=== PATIENT | female | born 1970 | race Caucasian/White ===

== ENCOUNTER 2019-02-02 11:26 | Emergency (ER) | payer BC ==
[~2019-02-02] VITALS: Ht 157.5 cm; Wt 103.0 kg
[~2019-02-02 11:26] MED LIST: CARB15DR91 EACH EAR
[2019-02-02 12:02] LABS: BASOPHILS # (AUTO) 0.1 X10'3 (0-0.2); BASOPHILS % (AUTO) 0.7 % (0-1); EOSINOPHILS % (AUTO) 0.7 % (0-6); HEMATOCRIT 46.1 % (35.0-45.0); HEMOGLOBIN 15.7 g/dl (12.0-16.0); LYMPHOCYTES # (AUTO) 1.6 X10'3 (1.1-4.8); LYMPHOCYTES % (AUTO) 23.4 % (21-51); MEAN CORPUSCULAR HEMOGLOBIN 29.1 PG (27.0-31.0); MEAN CORPUSCULAR VOLUME 85.4 FL (78-98); MEAN PLATELET VOLUME 8.9 FL (7.4-10.4); MONOCYTES # (AUTO) 0.7 X10'3 (0-0.9); MONOCYTES % (AUTO) 10.6 % (2-12); NEUTROPHILS # (AUTO) 4.5 X10'3 (1.8-7.7); NEUTROPHILS % (AUTO) 64.6 % (42-75); PLATELET COUNT 362 X10'3 (140-440); RED BLOOD COUNT 5.39 X10'6 (4.20-5.60); RED CELL DISTRIBUTION WIDTH 13.9 % (11.5-14.5)
[2019-02-02 12:19] LABS: ALANINE AMINOTRANSFERASE 53 U/L (12-78); ALBUMIN 3.7 G/DL (3.4-5.0); ALBUMIN/GLOBULIN RATIO 0.8 (1.1-1.5); ALKALINE PHOSPHATASE 117 IU/L (46-116); ANION GAP 18 (8-16); ASPARTATE AMINO TRANSFERASE 35 U/L (10-37); BILIRUBIN,TOTAL 0.9 MG/DL (0.1-1.0); BLOOD UREA NITROGEN 17 MG/DL (7-18); BUN/CREATININE RATIO 20.7 (6.6-38.0); CALCIUM 10.2 MG/DL (8.5-10.1); CHLORIDE 103 MMOL/L (99-107); CREATININE 0.82 MG/DL (0.40-0.90); GLUCOSE 90 MG/DL (70-104); LIPASE 538 U/L (73-393); SODIUM 142 MMOL/L (135-145); TOTAL CARBON DIOXIDE 20.9 MMOL/L (24-32); TOTAL PROTEIN 8.4 G/DL (6.4-8.2); eGFR 74 ML/MIN
[2019-02-02 13:07] LABS: PARTIAL THROMBOPLASTIN TIME 64 SECONDS (22-32)
[2019-02-02] MEDS ORDERED: normal saline 1000ml 1,000 ML IV ONE ×2 (13:45→13:50)
[2019-02-02] MEDS ORDERED: proCHLORperazine 10 MG/2 ml inj IV ONE (13:45)
[2019-02-02] MEDS ORDERED: potassium 10mEq/100ml NS w/LIDOcaine (10mg/bag) IV SCH (13:45)
[2019-02-02] MEDS ORDERED: magnesium 2GM in 50ml NS 50 ML IV ONE (13:45)
[2019-02-02] MEDS ORDERED: potassium Cl 10 mEq/100mL bag IV SCH (13:47)
[2019-02-02 14:13] LABS: TROPONIN I < 0.04 NG/ML (0.0-0.05)
[2019-02-02] MEDS ORDERED: iohexol 300mg/ml 100ml inj. ONE (14:40)
[2019-02-02] MEDS: diatr meglu/diatrizoate 30ml oral sol.-(3 dose) bottle PO SCH ×2 (14:42→15:34)
[2019-02-02 15:52] LABS: URINE HCG NEGATIVE (NEG)
[2019-02-02 16:05] LABS: CLARITY,URINE CLOUDY (Clear); COLOR,URINE YELLOW (Yellow); GLUCOSE, URINE NEGATIVE (Neg); KETONES,URINE >=80 mg/dl (Neg); LEUKOCYTE ESTERASE ,URINE TRACE (Neg); NITRITES, URINE NEGATIVE (Neg); OCCULT BLOOD,URINE MODERATE (Neg); PROTEIN,URINE 30 mg/dl (Neg)
[2019-02-02] MEDS ORDERED: POTA20TA19 PO (16:08)
[2019-02-02] MEDS ORDERED: PROM25SU46 RC (16:08)
[2019-02-02] MEDS ORDERED: ONDA8TAB6 PO (16:08)
[2019-02-02 16:15] LABS: SQUAMOUS EPITHELIAL CELL,UR MANY /LPF (FEW); UA COLLECTION TYPE VOIDED
[2019-02-02 16:16] LABS: BACTERIA,URINE 2+ /HPF (Neg); MUCUS STRANDS MANY /LPF (Neg); RBC,URINE 0-2 /HPF (0-2)
[2019-02-02 17:38] VITALS: BP 130/77
== END 2019-02-02 17:40 | disposition home or self-care (01) ==
LOC: ER 11:26
DX: A08.4 Viral intestinal infection, unspecified (principal); E87.6 Hypokalemia; R79.1 Abnormal coagulation profile; Z79.899 Other long term (current) drug therapy
CPT/HCPCS: 36415; 74177; 80053; 81001; 81025; 83690; 84484; 85025; 85610; 85730; 96365; 96366; 96368; 96375; 99284; J0780; J3475; J3480; J7030; Q9963; Q9967

== ENCOUNTER 2020-05-25 15:56 | Emergency (ER) | payer BC ==
[~2020-05-25] VITALS: Ht 157.5 cm; Wt 93.2 kg
[~2020-05-25 15:56] MED LIST changes: +ONDA8TAB6 PO; +PROM25SU9 RC
[2020-05-25 16:44] VITALS: BP 154/82
== END 2020-05-25 20:30 | disposition left against medical advice (07) ==
LOC: ER 15:56
DX: M79.602 Pain in left arm (principal); Z53.21 Procedure and treatment not carried out due to patient leaving prior to being seen by health care provider

== ENCOUNTER 2020-08-02 01:53 | Emergency (ER) | payer BC, MEDICAID ==
[~2020-08-02] VITALS: Ht 157.5 cm; Wt 94.1 kg
[2020-08-02] MEDS ORDERED: AMOX-117 PO (02:14)
[2020-08-02] MEDS ORDERED: ketorolac trometh inj. 60 MG/2 ML VIAL IM ONE (02:15)
[2020-08-02] MEDS ORDERED: ondansetron 4mg rapidly disintigrating tab PO ONE (02:15)
[2020-08-02] MEDS ORDERED: amox tr/potassium clavulanate 875/125mg TAB PO ONE (02:15)
[2020-08-02 02:36] VITALS: BP 165/101
[2020-08-02] MEDS ORDERED: LIDO20SO16 PO (14:11)
== END 2020-08-02 02:39 | disposition home or self-care (01) ==
LOC: ER 01:53
DX: K08.89 Other specified disorders of teeth and supporting structures (principal); R22.0 Localized swelling, mass and lump, head; Z86.718 Personal history of other venous thrombosis and embolism; Z79.899 Other long term (current) drug therapy
CPT/HCPCS: 96372; 99283; J1885

== ENCOUNTER 2020-08-02 13:26 | Emergency (ER) | payer BC, MEDICAID ==
[~2020-08-02] VITALS: Ht 157.5 cm; Wt 94.5 kg
[~2020-08-02 13:26] MED LIST changes: +AMOX-117 PO
[2020-08-02] MEDS ORDERED: LIDO20SO16 PO (14:11)
[2020-08-02] MEDS ORDERED: ketorolac tromethamine 15mg/ml inj. IM ONE (14:15)
[2020-08-02 14:27] VITALS: BP 170/80
== END 2020-08-02 14:28 | disposition home or self-care (01) ==
LOC: ER 13:26
DX: K08.89 Other specified disorders of teeth and supporting structures (principal); Z86.718 Personal history of other venous thrombosis and embolism; Z79.899 Other long term (current) drug therapy
CPT/HCPCS: 96372; 99283; J1885

== ENCOUNTER 2022-12-07 10:05 | Inpatient (IN) | payer BC, MEDICAID ==
[~2022-12-07] VITALS: Ht 157.5 cm; Wt 97.4 kg
[~2022-12-07 10:05] MED LIST changes: -AMOX-117 PO; +LIDO20SO16 PO
[2022-12-07 11:07] LABS: URINE HCG NEGATIVE (NEG)
[2022-12-07 11:22] LABS: BASOPHILS # (AUTO) 0.1 X10'3 (0-0.2); EOSINOPHILS # (AUTO) 0.1 X10'3 (0-0.9); EOSINOPHILS % (AUTO) 1.4 % (0-6); HEMATOCRIT 45.4 % (35.0-45.0); HEMOGLOBIN 15.2 g/dl (12.0-16.0); LYMPHOCYTES % (AUTO) 30.5 % (21-51); MEAN CORPUSCULAR HEMOGLOBIN 30.8 PG (27.0-31.0); MEAN CORPUSCULAR HGB CONC 33.3 g/dL (33.0-36.5); MEAN CORPUSCULAR VOLUME 92.2 FL (78-98); MEAN PLATELET VOLUME 7.6 FL (7.4-10.4); MONOCYTES # (AUTO) 0.5 X10'3 (0-0.9); MONOCYTES % (AUTO) 8.3 % (2-12); NEUTROPHILS # (AUTO) 3.8 X10'3 (1.8-7.7); NEUTROPHILS % (AUTO) 58.8 % (42-75); PLATELET COUNT 358 X10'3 (140-440); RED BLOOD COUNT 4.93 X10'6 (4.20-5.60); RED CELL DISTRIBUTION WIDTH 13.9 % (11.5-14.5); WHITE BLOOD COUNT 6.5 X10'3 (4.5-11.0)
[2022-12-07 11:27] LABS: URINE AMPHETAMINE SCREEN NEGATIVE (Neg); URINE BARBITUATE SCREEN NEGATIVE (Neg); URINE BENZODIAZEPINES SCREEN NEGATIVE (Neg); URINE CANNABINOID SCREEN NEGATIVE (Neg); URINE COCAINE SCREEN NEGATIVE (Neg); URINE METHADONE SCREEN NEGATIVE (Neg); URINE OPIATE SCREEN NEGATIVE (Neg); URINE PHENCYCLIDINE SCREEN NEGATIVE (Neg)
[2022-12-07 11:36] LABS: ALANINE AMINOTRANSFERASE 21 U/L (12-78); ALBUMIN 3.9 G/DL (3.4-5.0); ALBUMIN/GLOBULIN RATIO 0.9 (1.1-1.5); ALKALINE PHOSPHATASE 98 IU/L (46-116); ANION GAP 12 (8-16); ASPARTATE AMINO TRANSFERASE 27 U/L (10-37); BILIRUBIN,TOTAL 0.8 MG/DL (0.1-1.0); BLOOD UREA NITROGEN 12 MG/DL (7-18); BUN/CREATININE RATIO 16.7 (10.0-20.0); CHLORIDE 104 MMOL/L (99-107); CREATININE 0.72 MG/DL (0.40-0.90); GLUCOSE 99 MG/DL (70-104); POTASSIUM 3.5 MMOL/L (3.5-5.1); SODIUM 140 MMOL/L (135-145); TOTAL CARBON DIOXIDE 24.2 MMOL/L (24-32); TOTAL PROTEIN 8.1 G/DL (6.4-8.2); eGFR 85 ML/MIN
[2022-12-07 11:45] LABS: CALCIUM 9.8 MG/DL (8.5-10.1)
--- NOTE | 2022-12-07 11:49 | NUR ---
MENTAL HEALTH PACKET FAXED
[2022-12-07 11:56] LABS: ETHANOL < 0.010 GM/DL (0.0-0.010)
[2022-12-07] MEDS ORDERED: WARF1TAB83 PO (13:25)
--- NOTE | 2022-12-07 13:30 | NUR ---
Patient ambulatory, steady gait. No distress observed. Continue to monitor.
--- NOTE | 2022-12-07 15:20 | NUR ---
[facility], Nick is placing patient on a 5150. Patient is calm and states she is still feeling suicidal. Patient has a lot of stressors in her life. Continue to monitor.
[2022-12-07] MEDS ORDERED: WARF6TAB49 PO (15:43)
--- NOTE | 2022-12-07 17:18 | NUR ---
Patient reclining in bed and appears asleep. No distress observed. Continue to monitor.
--- NOTE | 2022-12-07 19:24 | NUR ---
Patient is pleasant and cooperative with care. When asked about sucidal thought she stated, "not so much today." Patient reported she struggles with depression and the previous medication worsened her thoughts. Patient is homeless but reports having a "safe place to sleep at night." Patient's hard of hearing; communicates well with lip reading and hearing aids. Patient's hearing aid marine firefighter was left in car and her keys are with security. Patient plans to have a friend visit to get her marine firefighter from the car.
--- NOTE | 2022-12-07 20:53 | NUR ---
Patient appears to be sleeping without apparent difficulties; self repositioning.
[2022-12-07] MEDS: warfarin 3mg tablet PO SCH (21:30)
--- NOTE | 2022-12-07 23:00 | NUR ---
Patient sleeping; no apparent distress and self repositioning.
--- NOTE | 2022-12-08 02:50 | NUR ---
Patient sleeping; no apparent distress and self repositioning.
--- NOTE | 2022-12-08 05:00 | NUR ---
Patient laying in bed quietly; PRN Tylenol provided for TIMMONS.
[2022-12-08] MEDS ORDERED: acetaminophen 325mg tablet PO ONE (05:05)
--- NOTE | 2022-12-08 06:44 | NUR ---
Patient appears to be sleeping. No distress observed. Continue to monitor.
--- NOTE | 2022-12-08 09:54 | NUR ---
With server security administrator and both patient and RN permission, security and I went to the Pt vehicle to retireve her hearing aid commercial floor covering installer and cell phone commercial floor covering installer. Pt vehicle was relocked following the retrieval of the chargers. Pt was informed and shown the retrieved chargers and assured that the vehicle was secured. Chargers placed with Pt belongings.
[2022-12-08] MEDS ORDERED: acetaminophen 325mg tablet PO PRN ×2 (10:25)
[2022-12-08] MEDS ORDERED: loperamide 2mg capsule PO PRN (10:25)
[2022-12-08] MEDS ORDERED: mag hydrox/Alum hydrox/simeth 30ml oral suspension PO PRN (10:25)
[2022-12-08] MEDS ORDERED: magnesium hydroxide 30ml (MOM) UD suspension PO PRN (10:25)
[2022-12-08 10:37] VITALS: BP 159/85; PULSE 69; RESP 16; TEMP 98.9; O2SAT 98
--- NOTE | 2022-12-08 10:58 | NUR ---
Admit note: [facility]150 for DTS from our ER at 1015. Pt states that she has been "Fighting and fighting" and she keeps "Losing and losing" and that she is "Tired". She has a plan involving overdosing on RX painkillers and cutting her wrists. Unable to develop a viable safety plan. Pt has history of HTN, gastric sleeve, depression, DVT.
[2022-12-08 11:34] VITALS: RESP 16; O2SAT 98
[2022-12-08] MEDS: hydrOXYzine 25 MG tablet PO PRN (14:15)
[2022-12-08] MEDS ORDERED: mirtazapine 15mg tablet PO PRN (17:30)
[2022-12-08 19:00] VITALS: BP 150/72; PULSE 72; RESP 18; TEMP 98.1; O2SAT 100
[2022-12-08] MEDS: warfarin 3mg tablet PO SCH (20:59)
--- NOTE | 2022-12-09 01:30 | NUR ---
Nursing progress note: Problem: Pt admitted to [facility] today on 5150 for DTS from our ER at 1015. Pt states that she has been "Fighting and fighting" and she keeps "Losing and losing" and that she is "Tired". She has a plan involving overdosing on RX painkillers and cutting her wrists. Unable to develop a viable safety plan. Pt has history of HTN, gastric sleeve, depression, DVT. Interventions: Provided 1:1 assessment, therapeutic conversation, active listening, medication administration/education/monitoring and Q15 min safety checks. Response: Patient is pleasant and cooperative with care; compliant with medication. She denied SI, HI, A/VH; no apparent delusions expressed. Patient reported feeling "more hopeful." She remained in her bed this shift; observed sleeping and does not appear to be having difficulty. Plan: Patient requires interruption of current crisis in a safe and therapeutic environment.
--- NOTE | 2022-12-09 02:24 | NUR ---
DRAFTER CIVIL ENGINEERING documentation: I have reviewed all interventions, assessments performed and documented by Faina WRIGHT.
[2022-12-09 07:00] VITALS: RESP 16; O2SAT 98
[2022-12-09 08:00] VITALS: BP 151/76; PULSE 64; RESP 16; TEMP 98.4; O2SAT 98
[2022-12-09] MEDS: ESCITALOPRAM OXALATE 5 MG TABLET PO SCH (08:46)
[2022-12-09 09:19] LABS: CHOL/HDL RATIO 3.8 (0.00-4.99); CHOLESTEROL 261 MG/DL (0-200); HDL CHOLESTEROL 69 MG/DL (35-60); LDL CHOLESTEROL 162 MG/DL (50-100); TRIGLYCERIDES 57 MG/DL (20-135)
[2022-12-09 09:21] LABS: HEMOGLOBIN A1C 5.3 % (4.5-6.2)
--- NOTE | 2022-12-09 17:13 | NUR ---
Nursing progress note: Michelle Problem: Pt admitted to [facility] today on 5150 for DTS from our ER at 1015. Pt states that she has been "Fighting and fighting" and she keeps "Losing and losing" and that she is "Tired". She has a plan involving overdosing on RX painkillers and cutting her wrists. Unable to develop a viable safety plan. Pt has history of HTN, gastric sleeve, depression, DVT. Interventions: Established rapport, provided 1:1 assessment, therapeutic conversation, active listening, positive reinforcement, medication administration/education/monitoring, and Q15 min safety checks. Response: Patient received sleeping in her room at change of shift with no s/s of distress. Pt awoke and was receptive to scheduled medication and 1:1 assessment. She joined with peers for breakfast in the group room. Pt is noted to be pleasant, calm, and cooperative with care. She endorsed to this designer writer that she is feeling great and much better after sleeping last night. Pt endorsed that the medication she received yesterday for her anxiety helped a lot also. Pt reported that she hasnt been sleeping well for years. Has no feelings of depression or anxiety. Denies SI/HI, AH and VH. Pt reporting that she would like to go home now. Informed that she will need to speak with the psychiatrist. She is noted isolating to her room the majority of the shift. Pt observed napping most of the day. She joined for all meal and snack times in the group room. Plan: Patient requires interruption of current crisis in a safe and therapeutic environment.
[2022-12-09 19:00] VITALS: RESP 16; O2SAT 98
[2022-12-09 20:00] VITALS: BP 111/81; PULSE 87; RESP 16; TEMP 97.2; O2SAT 98
[2022-12-09] MEDS: hydrOXYzine 25 MG tablet PO PRN (20:42)
--- NOTE | 2022-12-10 04:49 | NUR ---
Nursing progress note: Michelle Problem: Pt admitted to [facility] today on 5150 for DTS from our ER at 1015. Pt states that she has been "Fighting and fighting" and she keeps "Losing and losing" and that she is "Tired". She has a plan involving overdosing on RX painkillers and cutting her wrists. Unable to develop a viable safety plan. Pt has history of HTN, gastric sleeve, depression, DVT. Interventions: Established rapport, provided 1:1 assessment, therapeutic conversation, active listening, positive reinforcement, medication administration/education/monitoring, and Q15 min safety checks. Response: Patient was found in her assigned bed. Pt is calm and pleasant during 1:1 at bedside. Pt denies SI/HI/AVH, depression has decreased, 2/10 and anxiety much improved. I slept great last night. Pt is surprised about how quickly she is feeling since admission. Pt is compliant with HS medication. Atarax 50mg given as PRN. Pt is withdrawn to her room but is social with her roommate. Pt contracts for safety. Monitor for safety through the night. Plan: Patient requires interruption of current crisis in a safe and therapeutic environment.
[2022-12-10 07:05] VITALS: BP 144/77; PULSE 65; RESP 16; TEMP 98.2; O2SAT 99
[2022-12-10] MEDS ORDERED: atorvastatin 20mg tablet PO SCH (08:00)
[2022-12-10] MEDS: ESCITALOPRAM OXALATE 5 MG TABLET PO SCH (08:32)
--- NOTE | 2022-12-10 10:12 | NUR ---
DISCHARGE PLAN Pt. plans to stay with her friend Whitley for awhile to get back on her feet. This Bolt Cutter spoke to Whitley who confirmed that she can in fact stay with her. Pt. has her therapist appointment today that she would like to go to. The plan is for her to discharge today. Made her a follow up appt. with her PCP at [facility]. Her car is at [facility] in the parking lot so she can drive herself to her therapist appt. this afternoon. Alma Campbell LCSW
[2022-12-10] MEDS ORDERED: ESCI-8 PO (11:14)
[2022-12-10] MEDS ORDERED: ATOR20TA66 PO (11:14)
[2022-12-10] MEDS ORDERED: HYDR-3686 PO (11:14)
[2022-12-10] MEDS ORDERED: MIRT-87 PO (11:14)
--- NOTE | 2022-12-10 12:05 | NUR ---
DISCHARGE PLAN: Pt was discharged from unit at 1205. Pt was A&Ox4. Pt was escorted out with promotion writer and security. Pt's car is located in [facility] parking lot and pt is able to drive herself to her friend Whitley's house. Pt has an appointment with her therapist at 1330, which she will attend. Pt left with all personal belongings.
--- NOTE | 2022-12-10 12:30 | NUR ---
BELOW IS DESKTOP PUBLISHER NOTE
[2022-12-10] MEDS ORDERED: warfarin 5mg tablet PO ONE (21:00)
== END 2022-12-10 12:05 | disposition home or self-care (01) | DRG 751 ==
LOC: ER 10:05 → ED HOLD 12-08 07:55 → ADULT MH 12-08 10:15
PROVIDERS: ADMIT Psychiatry & Neurology Psychiatry; ATTEND Psychiatry & Neurology Psychiatry
DX: F33.1 Major depressive disorder, recurrent, moderate (principal); R45.851 Suicidal ideations; Z20.822 Contact with and (suspected) exposure to COVID-19; E78.5 Hyperlipidemia, unspecified; F41.9 Anxiety disorder, unspecified; Z59.02 Unsheltered homelessness; Z80.0 Family history of malignant neoplasm of digestive organs; Z86.718 Personal history of other venous thrombosis and embolism; Z80.1 Family history of malignant neoplasm of trachea, bronchus and lung; Z81.1 Family history of alcohol abuse and dependence; Z91.51 Personal history of suicidal behavior; Z97.4 Presence of external hearing-aid; Z98.84 Bariatric surgery status; Z79.899 Other long term (current) drug therapy; Z98.51 Tubal ligation status
CPT/HCPCS: 36415; 80053; 80061; 80305; 80320; 81025; 83036; 84443; 85025; 85610; 87081; 87811; 99285; Q0177